=== PATIENT | female | born 1995 ===

== ENCOUNTER 2025-01-17 09:38 | Emergency (ER) | payer SELFPAY ==
[2025-01-17] MEDS: Ondansetron 4 MG/2 ML SDV IVPUSH ONE (09:52)
[2025-01-17] MEDS: Sodium Chloride 0.9% 10 ML Syringe FLUSH PRN (09:56)
[2025-01-17] MEDS: Lactated Ringers 1,000 ML IV ONE ×2 (09:56→11:35)
[2025-01-17 10:01] LABS: BASOPHILS ABSOLUTE AUTO 0.02 K/uL (0.00-0.20); BASOPHILS PERCENT AUTO 0.9 % (0.0-2.0); EOSINOPHILS ABSOLUTE AUTO 0.00 K/uL (0.00-0.50); EOSINOPHILS PERCENT AUTO 0.0 % (0.0-5.0); IMMATURE GRAN ABSOLUTE AUTO 0.00 10^3/uL (0.00-0.04); IMMATURE GRAN PERCENT AUTO 0.0 % (0.0-0.4); LYMPHOCYTES ABSOLUTE AUTO 0.40 K/uL (0.50-3.50); LYMPHOCYTES PERCENT AUTO 18.1 % (10.0-50.0); MONOCYTES ABSOLUTE AUTO 0.31 K/uL (0.00-1.00); MONOCYTES PERCENT AUTO 14.0 % (2.0-14.0); NEUTROPHILS ABSOLUTE AUTO 1.48 K/uL (1.40-7.00); NEUTROPHILS PERCENT AUTO 67.0 % (45.0-80.0); PLATELET COUNT,PLT 175 K/uL (150-350); RED BLOOD CELL COUNT 4.19 M/uL (3.77-5.09); RED CELL DISTRIBUTION WIDTH 15.6 % (11.2-14.1); WHITE BLOOD CELL COUNT,WBC 2.2 K/uL (4.0-10.2)
[2025-01-17 10:20] LABS: INR 1.4 (0.9-1.1)
[2025-01-17 10:21] LABS: ALANINE AMINOTRANSFERASE,ALT 101.0 U/L (12-78); ASPARTATE AMNIOTRANSFERASE,AST 175.0 U/L (15-37); BILIRUBIN TOTAL 2.8 mg/dL (0.2-1.0); BLOOD UREA NITROGEN,BUN 10.0 mg/dL (7-18); CARBON DIOXIDE,CO2 23.6 mmol/L (21.0-32.0); CHLORIDE,CL 103.0 mmol/L (98-107); CREATININE 0.67 mg/dL (0.51-1.17); EST CRCL DRUG DOSING (CG) 96.22 mL/min; ESTIMATED GFR 120.0 mL/min (>=60); GLUCOSE RANDOM 84.0 mg/dL (70-99); POTASSIUM,K 4.1 mmol/L (3.5-5.1); PROTEIN TOTAL,TP 6.9 g/dL (6.4-8.2); SODIUM,NA 141.0 mmol/L (136-145)
[2025-01-17] MEDS ORDERED: Naloxone 0.4 MG/ML SDV IVPUSH PRN (10:41)
[2025-01-17] MEDS: fentaNYL 50 MCG/ML SDV IVPUSH ONE (10:45)
[2025-01-17] MEDS: Magnesium Hydroxide 400 MG/5 ML Susp 30 ML Cup ONE (12:14)
[2025-01-17] MEDS: Lidocaine 2% Viscous Solution 15 ML UD PO ONE (12:23)
[2025-01-17] MEDS: Aluminum Hydroxide/Magnesium Hydroxide/Simethicone 355 ML Bottle PO ONE (12:24)
[2025-01-17] MEDS: Lidocaine 2% Viscous Solution 15 ML UD ONE (12:37)
[2025-01-17] MEDS: Sucralfate Suspension 1 GM/10 ML Cup PO ONE (13:22)
[2025-01-17] MEDS: Take Home: Ondansetron 4 MG Tab.DIS, 5 Tab Pack PO ONE (13:41)
== END 2025-01-17 13:52 | disposition home or self-care (01) ==
LOC: LL.ED 09:38
DX: K21.9 Gastro-esophageal reflux disease without esophagitis (principal); K82.8 Other specified diseases of gallbladder; K76.0 Fatty (change of) liver, not elsewhere classified; F10.90 Alcohol use, unspecified, uncomplicated; R74.01 Elevation of levels of liver transaminase levels; Z79.899 Other long term (current) drug therapy; Y90.9 Presence of alcohol in blood, level not specified
CPT/HCPCS: 36415; 74176; 80053; 83735; 84703; 85025; 85610; 96361; 96374; 96375; 99284; 99284-25; A9270-GY; J2405; J2470; J3010; J7120; Q0162